=== PATIENT | male | born 1970 | race Caucasian/White ===

== ENCOUNTER 2016-12-30 09:53 | Emergency (ER) | payer MEDICAID, OTHER ==
[~2016-12-30] VITALS: Ht 170.2 cm; Wt 69.5 kg
[2016-12-30 09:59] VITALS: Ht 170.2 cm; Wt 69.5 kg
--- NOTE | 2016-12-30 10:29 | ERD ---
ER Documentation Chief Complaint Date/Time DATE: 12/30/16 TIME: 10:23 Chief Complaint RIGHT ARM PAIN/SWELLING HPI This is a 46-year-old male presents to the ER with right arm pain and swelling after a cactus tree fell onto his right arm. Patient states that the tree was going to fall and his son and patient tried to stop this from happening. Patient states that thorns from the cactus tree has caused his arm to become red and swollen. He is also c/o right elbow pain. Right elbow pain is worse whenever he moves his elbow and per patient pain radiates throughout his entire arm. He denies any wrist pain or shoulder pain. Patient did not fall to the floor. He has not had any fevers or chills. He denies any difficulty in breathing, chest pain. He denies any facial, tongue swelling. He denies any difficulty in swallowing. ROS 12 point review of systems was done, all negative except per HPI. Medications Home Meds Active Scripts Diphenhydramine Hcl* (Diphenhydramine Hcl*) 25 Mg Capsule, 25 MG PO Q6 Y for ITCHING for 3 Days, CAP Prov:SANDRA FERNANDEZ 12/30/16 Ibuprofen* (Motrin*) 600 Mg Tab, 600 MG PO Q6, #30 TAB Prov:SANDRA FERNANDEZ 12/30/16 PMhx/Soc Medical and Surgical Hx: pt denies Medical Hx, pt denies Surgical Hx Hx Alcohol Use: No Hx Substance Use: No Hx Tobacco Use: No Smoking Status: Never smoker Physical Exam Vitals Vital Signs Date Time Temp Pulse Resp B/P Pulse Ox O2 Delivery O2 Flow Rate FiO2 12/30/16 09:59 98.2 70 19 120/76 97 Physical Exam GENERAL: The patient is well developed and appropriate for usual state of health , in no apparent distress. HEENT: Atraumatic. There is no swelling of the eyes, tongue, lips, mouth NECK: C-spine is soft and supple. There is no cervical lymphadenopathy. CHEST: Clear to auscultation bilaterally. There are no rales, wheezes or rhonchi. HEART: Regular rate and rhythm. No murmurs, clicks, rubs or gallops. EXTREMITIES: Pinpoint areas of redness and swelling where thorns hits patient. Patient has painful elbow extension and flexion, patient however has normal and nonpainful supination and pronation. No deformities felt, area is tender to palpation to the lateral and ulnar epicondyles. Normal muscle strength. Intact motor and sensation of ulnar median and radial nerves. Patient has full range of motion of the shoulder and wrist and is not tender to palpation. There are no deformities. NEURO: Alert and oriented. Results 24 hrs Current Medications Medications (Trade) Dose Ordered Sig/Ludwig Route PRN Reason Start Time Stop Time Status Last Admin Dose Admin Ibuprofen (Motrin) 600 mg ONCE ONCE PO 12/30/16 10:30 12/30/16 10:31 DC 12/30/16 10:18 Procedures/MDM This is a 46-year-old male presents to the ER with right arm pain and swelling. This is likely related to recent trauma by a cactus tree. Patient does not have any fractures or dislocations. He is neurovascularly intact and there is no evidence of infection. Patient is afebrile and well-appearing. Patient likely has a localized reaction to the trauma. He will be sent home with ibuprofen, patient stated that he felt significantly better after taking ibuprofen here in the ER. He also be sent home with Benadryl for any potential localized allergic reaction. Suspicion for severe allergic reaction is low as there is no evidence of angioedema patient does not have any difficulty breathing and swallowing. Patient did not have any evidence of foreign body in arm. He needs to follow-up with his primary care doctor within 1-2 days return to ER sooner if symptoms worsen. My medical decision making shared with the patient understands and agrees with plan. Departure Diagnosis: Primary Impression: Pain of right arm Condition: Stable SANDRA FERNANDEZ Dec 30, 2016 10:29
[2016-12-30] MEDS ORDERED: IBUPROFEN 600 MG TAB PO ONE (10:30)
--- NOTE | 2016-12-30 11:47 | RADRPT ---
PROCEDURE: XR Elbow. CLINICAL INDICATION: Right elbow pain. TECHNIQUE: 3 views of the right elbow are available for review. COMPARISON: None available. FINDINGS: There is no acute fracture, dislocation, or other osteoarticular abnormality. The alignment is norm al. There is edema in the volar soft tissues of the visualized for forearm extending to the level o f the elbow joint. There is no joint effusion. No radiopaque foreign body is identified. IMPRESSION: 1. Edema within the volar soft tissues of the visualized forearm extending to the elbow joint. 2. Negative for acute fracture or dislocation. RPTAT: EE .Orlando Gardner MD, MD Date Time Electronically viewed and signed by .Orlando Gardner MD, on 12/30/2016 11:47 .P/
[2016-12-30] MEDS ORDERED: IBUP-1542 PO (12:06)
[2016-12-30] MEDS ORDERED: DIPH25CA6 PO (12:06)
== END 2016-12-30 12:14 | disposition home or self-care (01) ==
LOC: FTE 09:53
DX: M79.601 Pain in right arm (principal)
CPT/HCPCS: 73080; Z7610

== ENCOUNTER 2018-01-26 11:09 | Emergency (ER) | END 2018-01-26 13:08 | disposition home or self-care (01) ==